=== PATIENT | female | born 1950 | race Caucasian/White ===

== ENCOUNTER → 2024-03-04 08:02 | Outpatient (REF) | payer MEDICARE, BC, SELFPAY | LOC: HWWDC 08:02 | PROVIDERS: ATTENDING PHYSICIAN Family Medicine | DX: Z12.31 Encounter for screening mammogram for malignant neoplasm of breast (principal) | CPT/HCPCS: 77063; 77067 ==

== ENCOUNTER → 2024-03-12 10:25 | Outpatient (REF) | payer MEDICARE, BC, SELFPAY | LOC: HWRAD 10:25 | PROVIDERS: ATTENDING PHYSICIAN Family Medicine | DX: Z78.0 Asymptomatic menopausal state (principal) | CPT/HCPCS: 77080 ==

== ENCOUNTER → 2025-03-25 08:12 | Outpatient (REF) | payer MEDICARE, BC, SELFPAY | LOC: HWWDC 08:12 | PROVIDERS: ATTENDING PHYSICIAN Obstetrics & Gynecology; FAMILY PHYSICIAN Family Medicine | DX: Z12.31 Encounter for screening mammogram for malignant neoplasm of breast (principal) | CPT/HCPCS: 77063; 77067 ==